=== PATIENT | female | born 2000 | race African-American/Black ===

== ENCOUNTER 2018-07-30 14:02 | Emergency (ER) | payer SELFPAY ==
[~2018-07-30] VITALS: Ht 162.6 cm; Wt 56.0 kg
[2018-07-30 14:17] VITALS: BP 131/75
== END 2018-07-30 16:26 | disposition home or self-care (01) ==
LOC: ER 14:02
DX: H65.91 Unspecified nonsuppurative otitis media, right ear (principal); F12.10 Cannabis abuse, uncomplicated
CPT/HCPCS: 99281

== ENCOUNTER 2020-08-17 16:41 | Emergency (ER) | payer MEDICAID ==
[~2020-08-17] VITALS: Ht 162.6 cm; Wt 57.0 kg
[2020-08-17 17:28] LABS: BASOPHILS % 0.6 % (0.0-2.0); EOSINOPHILS % 0.5 % (0.0-5.0); HEMATOCRIT. 40.9 % (36.0-48.0); HEMOGLOBIN. 13.3 g/dL (12.0-16.0); MEAN CORPUSCULAR HEMOGLOBIN 28.2 pg (28.0-32.0); MEAN CORPUSCULAR VOLUME 86.5 fL (81.0-99.0); MEAN PLATELET VOLUME 8.8 fl (7.4-10.4); MONOCYTES % 8.3 % (2.0-8.0); NEUTROPHILS % 61.6 % (40.0-76.0); PLATELET 220 x1000/uL (130-400); RED BLOOD CELL COUNT 4.73 mill/uL (4.2-5.4); RED CELL DISTRIBUTION WIDTH 14.3 % (11.6-14.6)
[2020-08-17 17:30] LABS: CHLORIDE 110 mEq/L (98-107)
[2020-08-17 19:53] LABS: CLARITY URINE CLEAR (CLEAR); COLOR URINE YELLOW (YELLOW); KETONES URINE TRACE (NEGATIVE); LEUKOCYTE ESTERASE URINE TRACE (NEGATIVE); NITRITE URINE NEGATIVE (NEGATIVE); OCCULT BLOOD URINE NEGATIVE (NEGATIVE); PH URINE 6.5 (4.5-8.0); PROTEIN URINE NEGATIVE (NEGATIVE); SPECIFIC GRAVITY URINE 1.024 (1.005-1.030)
[2020-08-17] MEDS ORDERED: CEPH500C2 MT (20:25)
[2020-08-17] MEDS ORDERED: VIST25 MT (20:28)
[2020-08-17 21:00] VITALS: BP 121/74
== END 2020-08-17 21:24 | disposition home or self-care (01) ==
LOC: ER 16:41
DX: N39.0 Urinary tract infection, site not specified (principal); F43.0 Acute stress reaction; F12.10 Cannabis abuse, uncomplicated
CPT/HCPCS: 36415; 71045; 80053; 81003; 81025; 84484; 85025; 93005; 99285

== ENCOUNTER 2023-04-10 15:40 | Emergency (ER) | payer MEDICAID ==
[~2023-04-10] VITALS: Ht 163.8 cm; Wt 59.0 kg
[~2023-04-10 15:40] MED LIST: CEPH500C2 MT; VIST25 MT
[2023-04-10 16:21] VITALS: BP 150/91; PULSE 87; RESP 17; TEMP 98.8; O2SAT 100
[2023-04-10 17:11] LABS: CLARITY URINE CLEAR (CLEAR); COLOR URINE YELLOW (YELLOW); GLUCOSE URINE NEGATIVE (NEGATIVE); KETONES URINE NEGATIVE (NEGATIVE); LEUKOCYTE ESTERASE URINE NEGATIVE (NEGATIVE); NITRITE URINE NEGATIVE (NEGATIVE); OCCULT BLOOD URINE 3+ (NEGATIVE); PROTEIN URINE NEGATIVE (NEGATIVE); SPECIFIC GRAVITY URINE 1.013 (1.005-1.030)
[2023-04-10 17:14] LABS: SQUAMOUS EPITHELIAL CELL URINE 1+ /lpf (RARE/1+); WBC URINE 0-2 /hpf (0-2); YEAST URINE NONE SEEN
[2023-04-10 18:04] LABS: BACTERIA URINE TRACE
== END 2023-04-10 18:50 | disposition left against medical advice (07) ==
LOC: ER 15:40
DX: M54.9 Dorsalgia, unspecified (principal); Z53.21 Procedure and treatment not carried out due to patient leaving prior to being seen by health care provider
CPT/HCPCS: 81003; 81025; 99281

== ENCOUNTER 2023-06-10 21:53 | Emergency (ER) | payer BC, MEDICAID ==
[~2023-06-10] VITALS: Ht 162.6 cm; Wt 65.6 kg
[2023-06-10 22:53] VITALS: BP 128/84; PULSE 94; RESP 15; TEMP 98.1; O2SAT 98
[2023-06-10 23:22] LABS: BASOPHILS % 0.7 % (0.0-2.0); EOSINOPHILS % 1.2 % (0.0-5.0); HEMATOCRIT. 44.1 % (36.0-48.0); HEMOGLOBIN. 14.4 g/dL (12.0-16.0); LYMPHOCYTES % 32.5 % (20.0-50.0); MEAN CORPUSCULAR HEMOGLOBIN 28.6 pg (28.0-32.0); MEAN CORPUSCULAR HGB CONC 32.6 g/dL (31.0-37.0); MEAN CORPUSCULAR VOLUME 87.7 fL (81.0-99.0); MEAN PLATELET VOLUME 9.1 fl (7.4-10.4); MONOCYTES % 8.7 % (2.0-8.0); NEUTROPHILS % 56.9 % (40.0-76.0); PLATELET 232 x1000/uL (130-400); RED BLOOD CELL COUNT 5.04 mill/uL (4.2-5.4); RED CELL DISTRIBUTION WIDTH 14.4 % (11.6-14.6); WHITE BLOOD COUNT 12.5 x1000/uL (4.5-11.0)
[2023-06-10 23:37] LABS: ALANINE AMINOTRANSFERASE 17 IU/L (10-49); ALBUMIN 4.7 g/dL (3.2-4.8); ASPARTATE AMINOTRANSFERASE 21 IU/L (<34); BILIRUBIN TOTAL 0.5 mg/dL (0.1-1.0); CALCIUM 9.8 mg/dL (8.7-10.4); CARBON DIOXIDE 24 mEq/L (21-32); CHLORIDE 106 mEq/L (98-107); CREATININE 0.9 mg/dL (0.6-1.0); GLUCOSE 87 mg/dL (70-105); POTASSIUM 3.3 mEq/L (3.5-5.1); SODIUM 139 mEq/L (136-145); UREA NITROGEN BLOOD 18 mg/dL (9-23)
[2023-06-10 23:39] LABS: TROPONIN I HIGH SENSITIVITY < 4 ng/L (3.0-34)
[2023-06-10 23:52] LABS: PARTIAL THROMBOPLASTIN TIME 29.4 sec (23.4-31.0); PROTHROMBIN TIME 11.2 sec (9.6-11.0)
[2023-06-11 03:32] LABS: CLARITY URINE CLEAR (CLEAR); COLOR URINE YELLOW (YELLOW); GLUCOSE URINE NEGATIVE (NEGATIVE); KETONES URINE NEGATIVE (NEGATIVE); LEUKOCYTE ESTERASE URINE NEGATIVE (NEGATIVE); NITRITE URINE NEGATIVE (NEGATIVE); OCCULT BLOOD URINE NEGATIVE (NEGATIVE); PH URINE 5.5 (4.5-8.0); PROTEIN URINE NEGATIVE (NEGATIVE); SPECIFIC GRAVITY URINE 1.015 (1.005-1.030); UROBILINOGEN URINE 0.2 E.U./dL (0.2-1.0)
[2023-06-11] MEDS ORDERED: POTASSIUM CHLORIDE 20MEQ TABLET SR PO ONE (06:45)
== END 2023-06-11 10:18 | disposition home or self-care (01) ==
LOC: ER 21:53
DX: R00.2 Palpitations (principal); R06.02 Shortness of breath; E87.6 Hypokalemia; F12.90 Cannabis use, unspecified, uncomplicated
CPT/HCPCS: 36415; 71045; 80053; 81003; 84484; 85025; 93005; 99285

== ENCOUNTER 2024-01-23 19:17 | Emergency (ER) | payer MEDICAID, BC ==
[~2024-01-23] VITALS: Ht 162.6 cm; Wt 71.0 kg
[2024-01-23 19:42] VITALS: O2SAT 99
[2024-01-23 23:23] LABS: CLARITY URINE CLOUDY (CLEAR); COLOR URINE ORANGE (YELLOW); GLUCOSE URINE NEGATIVE (NEGATIVE); KETONES URINE 1+ (NEGATIVE); LEUKOCYTE ESTERASE URINE 1+ (NEGATIVE); NITRITE URINE NEGATIVE (NEGATIVE); OCCULT BLOOD URINE 3+ (NEGATIVE); PROTEIN URINE 1+ (NEGATIVE); SPECIFIC GRAVITY URINE 1.022 (1.005-1.030)
[2024-01-23 23:45] LABS: RBC URINE TNTC /hpf (0-2); SQUAMOUS EPITHELIAL CELL URINE FEW /lpf (RARE/1+); WBC URINE 0-2 /hpf (0-2)
[2024-01-23 23:46] LABS: BACTERIA URINE NONE SEEN
[2024-01-24] MEDS ORDERED: CLAR10 MT (00:40)
[2024-01-24] MEDS ORDERED: IBUP-1523 MT (00:40)
[2024-01-24] MEDS ORDERED: TOPUD MT (00:40)
[2024-01-24] MEDS ORDERED: AZIT250T12 MT (00:40)
[2024-01-24 01:00] VITALS: BP 108/67; PULSE 71; RESP 16; TEMP 36.50292; O2SAT 99
== END 2024-01-24 01:15 | disposition home or self-care (01) ==
LOC: ER 19:24
DX: J01.90 Acute sinusitis, unspecified (principal); F12.10 Cannabis abuse, uncomplicated; Z79.899 Other long term (current) drug therapy
CPT/HCPCS: 81003; 81025; 99283